=== PATIENT | female | born 1990 | race Native Hawaiian/Other Pacific Islander ===

== ENCOUNTER 2018-12-13 06:23 | Inpatient (IN) | payer OTHER ==
[2018-12-07 13:56] LABS: BASOPHILS % (AUTO) 0.4 % (0.0-2.0); EOSINOPHILS % (AUTO) 2.5 % (1.0-6.0); HEMATOCRIT 38.3 % (36-46); HEMOGLOBIN 12.3 g/dL (12.0-16.0); LYMPHOCYTES # (AUTO) 1.8 K/uL (1.0-4.8); LYMPHOCYTES % (AUTO) 30.1 % (22.0-44.0); MEAN CORPUSCULAR HEMOGLOBIN 27.6 pg (26.0-34.0); MEAN CORPUSCULAR HGB CONC 32.1 G/dL (31.0-37.0); MEAN CORPUSCULAR VOLUME 86 fL (80-100); MONOCYTES # (AUTO) 0.4 K/uL (0.1-1.0); MONOCYTES % (AUTO) 7.6 % (2.0-9.0); NEUTROPHILS # (AUTO) 3.5 K/uL (1.8-7.7); NEUTROPHILS % (AUTO) 59.4 % (40.0-70.0); PLATELET COUNT (AUTO) 345 K/uL (150-450); RED BLOOD CELL COUNT(AUTO) 4.46 MIL/uL (4.00-5.20); RED CELL DISTRIBUTION WIDTH 13.6 % (11.5-14.5)
[2018-12-07 14:04] LABS: ANION GAP 7 mmol/L (8-16); CARBON DIOXIDE 28 mmol/L (22-29); CHLORIDE 106 mmol/L (98-107); CREATININE 0.81 mg/dL (0.60-1.30); GLOMERULAR FILTR. RATE CALC > 60 mL/min (>60); GLUCOSE,RANDOM 92 mg/dL (70-110); POTASSIUM 4.4 mmol/L (3.5-5.1); SODIUM SERUM 141 mmol/L (136-145); UREA NITROGEN, BLOOD 12 mg/dL (7-18)
[2018-12-07 14:14] LABS: ALANINE AMINOTRANSFERASE 26 U/L (12-78); ALBUMIN 4.1 g/dL (3.4-5.0); ALKALINE PHOSPHATASE 43 U/L (46-116); ASPARTATE AMINOTRANSFERASE 13 U/L (15-37); BILIRUBIN,TOTAL 0.5 mg/dL (0.1-1.0); TOTAL PROTEIN, SERUM 7.7 g/dL (6.4-8.2)
[~2018-12-13] VITALS: Ht 148.6 cm; Wt 49.1 kg
[~2018-12-13 06:23] MED LIST: CeFAZolin 2 GM/DEXTROSE 50 ML IV ONE; IBUP-2071 PO; RINGERS SOLUTION,LACTATED 1,000 ML IV ONE
[2018-12-13] MEDS ORDERED: CeFAZolin 2 GM/DEXTROSE 50 ML IV ONE (07:00)
[2018-12-13] MEDS ORDERED: BUPIVACAINE LIPOSOME/PF 1.3%-13.3MG/ML SUSPENSION 20 ML VIAL INJ ONE (07:00)
[2018-12-13] MEDS ORDERED: RINGERS SOLUTION,LACTATED 1,000 ML IV ONE ×2 (07:00→09:15)
[2018-12-13] MEDS ORDERED: BUPIVACAINE HCL/PF 0.5% 30 ML VIAL ONE (07:14)
[2018-12-13] MEDS ORDERED: VANCOMYCIN HCL 1 GM/VIAL ONE (07:14)
[2018-12-13] MEDS ORDERED: HYDROmorphone 2 MG/ML SYRINGE IVP PRN (08:00)
[2018-12-13] MEDS ORDERED: MEPERIDINE-PF 25 MG/ML VIAL IVP PRN (08:00)
[2018-12-13] MEDS: OXYGEN THERAPY IH SCH ×2 (08:00→20:00)
[2018-12-13] MEDS ORDERED: FentaNYL CITRATE-PF 100 MCG/2 ML VIAL IVP PRN (08:00)
[2018-12-13] MEDS ORDERED: ONDANSETRON HCL 4 MG/2 ML VIAL IM PRN (08:00)
[2018-12-13 11:36] VITALS: BP 108/69
[2018-12-13] MEDS ORDERED: DEXAMETHASONE SOD PHOS 4 MG/ML VIAL IVP ONE (12:00)
[2018-12-13] MEDS ORDERED: ONDANSETRON HCL 4 MG/2 ML VIAL IVP ONE (12:00)
[2018-12-13] MEDS ORDERED: MIDAZOLAM HCL 2 MG/2 ML VIAL IVP ONE (12:00)
[2018-12-13] MEDS ORDERED: SUCCINYLCHOLINE CHLORIDE 20 MG/ML 10 ML VIAL IVP ONE (12:00)
[2018-12-13] MEDS ORDERED: EPHEDrine SULFATE 50 MG/ML VIAL IM ONE (12:00)
[2018-12-13] MEDS ORDERED: PROPOFOL 1% 20 ML VIAL IVP ONE (12:00)
[2018-12-13] MEDS ORDERED: ROCURONIUM BROMIDE 10 MG/ML 5 ML VIAL IVP ONE (12:00)
[2018-12-13] MEDS ORDERED: FentaNYL CITRATE-PF 100 MCG/2 ML VIAL IVP ONE (12:00)
[2018-12-13] MEDS: HYDROmorphone 2 MG/ML SYRINGE IVP PRN ×3 (12:49→23:09)
[2018-12-13] MEDS ORDERED: INFLUENZA VIRUS VACCINE QVS 2019-20 (3YR+)/PF 60 MCG/0.5 ML SYRINGE IM ONE (13:15)
[2018-12-13] MEDS: OxyCODONE HCL/ACETAMINOPHEN 5-325 MG TABLET PO PRN (15:15)
[2018-12-13 15:44] VITALS: BP 105/65
[2018-12-13] MEDS ORDERED: MAGNESIUM HYDROXIDE SUSPENSION 30 ML UDCUP PO ONE (19:00)
[2018-12-13] MEDS: CYCLOBENZAPRINE HCL 10 MG TABLET PO PRN (19:05)
[2018-12-13 20:34] VITALS: BP 115/76
[2018-12-13 23:45] VITALS: BP 116/74
[2018-12-14 04:00] VITALS: BP 110/66
[2018-12-14 07:20] VITALS: BP 106/57
[2018-12-14] MEDS: OXYGEN THERAPY IH SCH ×2 (08:00→20:00)
[2018-12-14] MEDS: OxyCODONE HCL/ACETAMINOPHEN 5-325 MG TABLET PO PRN ×2 (08:37→15:02)
[2018-12-14] MEDS: HYDROmorphone 2 MG/ML SYRINGE IVP PRN ×2 (11:11→18:45)
[2018-12-14 11:20] VITALS: BP 107/67
[2018-12-14 15:30] VITALS: BP 122/62
[2018-12-14 20:18] VITALS: BP 104/62
[2018-12-14 23:41] VITALS: BP 120/77
[2018-12-15] MEDS: HYDROmorphone 2 MG/ML SYRINGE IVP PRN ×3 (04:03→12:27)
[2018-12-15 04:10] VITALS: BP 111/61
[2018-12-15] MEDS: CYCLOBENZAPRINE HCL 10 MG TABLET PO PRN (05:35)
[2018-12-15 07:35] VITALS: BP 99/59
[2018-12-15] MEDS ORDERED: INFLUENZA VIRUS VACCINE QVS 2019-20 (3YR+)/PF 60 MCG/0.5 ML SYRINGE IM ONE (08:45)
[2018-12-15] MEDS ORDERED: OxyCODONE HCL/ACETAMINOPHEN 10-325 MG TABLET PO PRN (09:15)
== END 2018-12-15 14:09 | disposition home or self-care (01) | DRG 520 ==
LOC: 6N 06:23 → OBSVTOIN 06:24 → 4E 06:25
PROVIDERS: ADMIT Orthopaedic Surgery Orthopaedic Surgery of the Spine; ATTEND Orthopaedic Surgery Orthopaedic Surgery of the Spine
PROC: 0SB24ZZ Excision of Lumbar Vertebral Disc, Percutaneous Endoscopic Approach (ICD-10-PCS; principal; 2018-12-13 09:15)
PROC: 3E0234Z Introduction of Serum, Toxoid and Vaccine into Muscle, Percutaneous Approach (ICD-10-PCS; 2018-12-15)
DX: M51.26 Other intervertebral disc displacement, lumbar region (principal); M47.896 Other spondylosis, lumbar region; Z23 Encounter for immunization
CPT/HCPCS: 87081; 90686; 97116; 97161; 97166; 97530; 97535; C9290; G0238; G0378; J0330; J0690; J1100; J1170; J2250; J2405; J2704; J3010; J3370; J3490; J7120